=== PATIENT | male | born 1980 | race Two or more races ===

== ENCOUNTER 2019-07-30 15:18 | Outpatient (CLI) | payer OTHER ==
[2019-07-30] MEDS ORDERED: METH750T2 PO (15:41)
[2019-07-30] MEDS ORDERED: MELO15TA24 PO (15:41)
[2019-07-30] MEDS ORDERED: GABA300C10 PO (15:41)
[2019-07-30] MEDS ORDERED: MULT-658 PO (15:53)
[2019-07-30 16:15] LABS: MICROSCOPIC NOT IND
[2019-07-30 16:19] LABS: INTERNATIONAL NORMALIZED RATIO 0.99 (0.93-1.1); PROTHROMBIN TIME 10.5 Seconds (9.6-11.5)
[2019-07-30 16:20] LABS: ANION GAP 5 mmol/L (5-15); CALCIUM 9.9 mg/dL (8.5-10.1); CHLORIDE 104 mmol/L (98-107); CREATININE 1.03 mg/dL (0.7-1.3)
[2019-07-30 16:23] LABS: BASOPHILS # (AUTO) 0.02 x10^3/uL (0-0.1); BASOPHILS % (AUTO) 0 % (0-1); EOSINOPHILS # (AUTO) 0.35 x10^3/uL (0-0.4); EOSINOPHILS % (AUTO) 4 % (1-7); LYMPHOCYTES # (AUTO) 3.56 x10^3/uL (1-3.4); LYMPHOCYTES % (AUTO) 41 % (22-44); MD NO; MEAN CORPUSCULAR HEMOGLOBIN 29.9 pg (27.5-34.5); MEAN CORPUSCULAR HGB CONC 33.7 g/dL (33.2-36.2); MEAN CORPUSCULAR VOLUME 88.5 fL (81-97); MEAN PLATELET VOLUME 8.8 fL (7.4-10.4); MONOCYTES # (AUTO) 0.74 x10^3/uL (0.2-0.8); MONOCYTES % (AUTO) 9 % (2-9); NEUTROPHILS % (AUTO) 47 % (42-75); PLATELET COUNT 301 x10^3/uL (130-400); RED BLOOD COUNT 4.85 x10^6/uL (4.38-5.82); RED CELL DISTRIBUTION WIDTH 13.1 % (9.4-14.8)
[2019-07-30 16:52] LABS: CULTURE INDICATED? NO
[2019-08-03] MEDS ORDERED: BUPIVACAINE/PF 0.25% ONE (06:49)
[2019-08-03] MEDS ORDERED: BUPIVACAINE/PF-EPI 0.25% 1:200K ONE (06:49)
[2019-08-03] MEDS ORDERED: VANCOMYCIN 1,000 MG ONE (06:49)
[2019-08-03] MEDS ORDERED: BACITRACIN 50,000 UNIT ONE (06:50)
== END 2019-07-30 23:59 | disposition home or self-care (01) ==
LOC: STAR 15:18
PROVIDERS: ATTEND Neurological Surgery
DX: Z01.818 Encounter for other preprocedural examination (principal); M51.26 Other intervertebral disc displacement, lumbar region; M51.35 Other intervertebral disc degeneration, thoracolumbar region; R79.1 Abnormal coagulation profile; R82.90 Unspecified abnormal findings in urine; R94.31 Abnormal electrocardiogram [ECG] [EKG]; Z01.811 Encounter for preprocedural respiratory examination; Z01.812 Encounter for preprocedural laboratory examination
CPT/HCPCS: 36415; 71046; 72110; 80048; 81003; 85025; 85610; 85730; 93005

== ENCOUNTER 2019-08-03 05:26 | Inpatient (IN) | payer OTHER ==
[~2019-08-03] VITALS: Ht 188 cm; Wt 97.9 kg
[~2019-08-03 05:26] MED LIST: GABA300C10 PO; MELO15TA24 PO; METH750T2 PO; MULT-658 PO
[2019-08-03] MEDS ORDERED: LACTATED RINGERS 1,000 ML IV SCH (05:57)
[2019-08-03 06:00] VITALS: BP 125/83
[2019-08-03] MEDS ORDERED: CHLORHEXIDINE 15 ML UDC MM ONE (06:00)
[2019-08-03] MEDS ORDERED: MIDAZOLAM 1 MG/ML, 2ML ONE (07:08)
[2019-08-03] MEDS ORDERED: FENTANYL PF 250 MCG/5ML ONE (07:08)
[2019-08-03] MEDS ORDERED: PROPOFOL 50 ML ONE ×4 (07:11→10:16)
[2019-08-03] MEDS ORDERED: BACITRACIN 50,000 UNIT ONE ×2 (07:29→14:21)
[2019-08-03] MEDS ORDERED: SUCCINYLCHOLINE 20 MG/ML, 10ML ONE ×2 (07:30→08:16)
[2019-08-03] MEDS ORDERED: LIDOCAINE PF 2%, 5ML ONE (07:30)
[2019-08-03] MEDS ORDERED: ONDANSETRON 2MG/ML, 2ML ONE (08:16)
[2019-08-03] MEDS ORDERED: GLYCOPYRROLATE 0.2MG/1ML, 5ML ONE (08:16)
[2019-08-03] MEDS ORDERED: ROCURONIUM 10MG/ML,5ML ONE (08:16)
[2019-08-03] MEDS ORDERED: PROPOFOL 10 MG/ML, 20ML ONE (08:16)
[2019-08-03] MEDS ORDERED: CEFAZOLIN 1,000 MG ONE (08:16)
[2019-08-03] MEDS ORDERED: NEOSTIGMINE 1 MG/ML, 10ML ONE (08:16)
[2019-08-03] MEDS ORDERED: DEXAMETHASONE 4 MG/ML, 1ML ONE (08:16)
[2019-08-03] MEDS ORDERED: BUPIVACAINE/PF-EPI 0.25% 1:200K INFIL ONE (08:24)
[2019-08-03] MEDS ORDERED: BUPIVACAINE/PF 0.25% INFIL ONE (08:25)
[2019-08-03] MEDS ORDERED: VANCOMYCIN 1,000 MG IM ONE (08:26)
[2019-08-03] MEDS ORDERED: FENTANYL PF 100 MCG/2ML ONE (10:16)
[2019-08-03] MEDS ORDERED: LORazepam 2 MG/ML, 1ML IVPush PRN (12:00)
[2019-08-03] MEDS ORDERED: PROMETHAZINE 25 MG/ML, 1ML IV PRN (12:00)
[2019-08-03] MEDS ORDERED: OXYcodone 5 MG/5 ML ORAL.SOL UDC PO PRN (12:00)
[2019-08-03] MEDS ORDERED: MIDAZOLAM 1 MG/ML, 2ML IV PRN (12:00)
[2019-08-03] MEDS ORDERED: ACETAMINOPHEN 325 MG TABLET PO PRN (12:00)
[2019-08-03] MEDS ORDERED: FENTANYL PF 100 MCG/2ML IV PRN (12:00)
[2019-08-03] MEDS ORDERED: ACETAMINOPHEN 650 MG/20.3 ML UDC ONE (12:15)
[2019-08-03] MEDS ORDERED: HYDROmorphone 1 MG/ML, 1ML INJ ONE (12:15)
[2019-08-03] MEDS ORDERED: OXYcodone 5 MG/5 ML ORAL.SOL UDC ONE (12:15)
[2019-08-03] MEDS: HYDROmorphone 2 MG/ML, 1ML IVPush PRN ×3 (12:19→12:48)
[2019-08-03] MEDS ORDERED: BUPIVACAINE/PF-EPI 0.25% 1:200K ONE (14:21)
[2019-08-03] MEDS ORDERED: BUPIVACAINE/PF 0.25% ONE (14:21)
[2019-08-03] MEDS ORDERED: BISACODYL 10 MG SUPP PR PRN (14:30)
[2019-08-03] MEDS ORDERED: MAGNESIUM HYDROXIDE 8%, 30ML UDC PO PRN (14:30)
[2019-08-03] MEDS ORDERED: PROMETHAZINE 25 MG/ML, 1ML IM PRN (14:30)
[2019-08-03] MEDS ORDERED: DIPHENHYDRAMINE 50 MG/ML, 1ML IVPush PRN (14:30)
[2019-08-03] MEDS ORDERED: DIPHENHYDRAMINE 25 MG CAPSULE PO PRN (14:30)
[2019-08-03] MEDS ORDERED: DIPHENHYDRAMINE 50 MG/ML, 1ML IM PRN (14:30)
[2019-08-03] MEDS ORDERED: HYDROcodone/APAP 5/325 TABLET PO PRN (14:30)
[2019-08-03] MEDS ORDERED: ONDANSETRON 2MG/ML, 2ML IV PRN (14:30)
[2019-08-03] MEDS ORDERED: LABETALOL 5MG/ML, 20ML IV PRN (14:30)
[2019-08-03] MEDS ORDERED: HYDROmorphone 2 MG/ML, 1ML IM PRN (14:30)
[2019-08-03 14:49] VITALS: BP 125/72
[2019-08-03] MEDS: GABAPENTIN 300 MG CAPSULE PO SCH ×2 (16:08→20:54)
[2019-08-03] MEDS: CEFAZOLIN PMX 1GM/50ML 50 ML IVPB SCH (16:08)
[2019-08-03] MEDS: HYDROmorphone 2MG TABLET PO PRN ×2 (16:12→16:46)
[2019-08-03] MEDS: METHOCARBAMOL 750 MG TABLET PO PRN (16:14)
[2019-08-03] MEDS: NS + 20MEQ KCL 1,000 ML IV SCH (19:30)
[2019-08-03 19:45] VITALS: BP 107/82
[2019-08-03] MEDS: OXYcodone/APAP 5/325MG TABLET PO PRN (20:54)
[2019-08-04 00:26] VITALS: BP 103/65
[2019-08-04] MEDS: METHOCARBAMOL 750 MG TABLET PO PRN (00:28)
[2019-08-04] MEDS: CEFAZOLIN PMX 1GM/50ML 50 ML IVPB SCH (00:28)
[2019-08-04] MEDS: NS + 20MEQ KCL 1,000 ML IV SCH ×2 (04:30→07:18)
[2019-08-04 05:18] VITALS: BP 99/59
[2019-08-04] MEDS: OXYcodone/APAP 5/325MG TABLET PO PRN ×2 (05:46→10:16)
[2019-08-04 07:22] VITALS: BP 117/77
[2019-08-04] MEDS ORDERED: OXYC-307 PO (08:48)
[2019-08-04] MEDS ORDERED: DOXY100T PO (08:48)
[2019-08-04] MEDS ORDERED: SENNA/DOCUSATE TABLET PO SCH (09:00)
[2019-08-04] MEDS ORDERED: MULTIVITAMIN 1 TABLET PO SCH (09:00)
[2019-08-04] MEDS: GABAPENTIN 300 MG CAPSULE PO SCH (09:01)
[2019-08-04 10:30] VITALS: BP 118/74
[2019-08-04] MEDS ORDERED: ENOXAPARIN 40 MG/0.4 ML SQ SCH (11:30)
== END 2019-08-04 10:43 | disposition home or self-care (01) | DRG 455 ==
LOC: ORIP 05:26 → 4NE 13:43
PROVIDERS: ADMIT Neurological Surgery; ATTEND Neurological Surgery
PROC: 0SG0071 Fusion of Lumbar Vertebral Joint with Autologous Tissue Substitute, Posterior Approach, Posterior Column, Open Approach (ICD-10-PCS; 2019-08-03)
PROC: 0SB20ZZ Excision of Lumbar Vertebral Disc, Open Approach (ICD-10-PCS; 2019-08-03)
PROC: 01NB0ZZ Release Lumbar Nerve, Open Approach (ICD-10-PCS; 2019-08-03)
PROC: 00NY0ZZ Release Lumbar Spinal Cord, Open Approach (ICD-10-PCS; 2019-08-03)
PROC: 4A11X4G Monitoring of Peripheral Nervous Electrical Activity, Intraoperative, External Approach (ICD-10-PCS; 2019-08-03)
PROC: 0SG00AJ Fusion of Lumbar Vertebral Joint with Interbody Fusion Device, Posterior Approach, Anterior Column, Open Approach (ICD-10-PCS; principal; 2019-08-03 07:30)
DX: M48.061 Spinal stenosis, lumbar region without neurogenic claudication (principal); M47.26 Other spondylosis with radiculopathy, lumbar region; M21.379 Foot drop, unspecified foot; G54.9 Nerve root and plexus disorder, unspecified; Z88.8 Allergy status to other drugs, medicaments and biological substances; M43.16 Spondylolisthesis, lumbar region; G57.90 Unspecified mononeuropathy of unspecified lower limb
CPT/HCPCS: 72100; C1713; C1729; C1767; G0378; J0690; J1100; J1170; J2250; J2405; J2704; J2710; J3010; J3370; J3490; C1762; C1889; J0330; J7120